=== PATIENT | female | born 1940 | race Two or more races ===

== ENCOUNTER 2020-05-20 11:23 | Inpatient (IN) | payer OTHER ==
[~2020-05-20] VITALS: Ht 152.4 cm; Wt 59.0 kg
[2020-06-17] MEDS ORDERED: COZAAR50 MG PO (17:46)
[2020-06-17] MEDS ORDERED: SYNTHROID50 MCG PO (17:46)
[2020-06-17] MEDS ORDERED: OMEPRAZOLE40 MG PO (17:47)
[2020-06-17] MEDS ORDERED: NEURONTIN600 M1 PO (17:47)
[2020-06-17] MEDS ORDERED: GLIMEPIRIDE4 MG (17:47)
[2020-06-26] MEDS ORDERED: OXYC1TAB9 PO (12:47)
[2020-06-26] MEDS ORDERED: HYOSCYAMINE0.125 M1 SL (12:47)
== END 2020-06-26 15:23 | disposition home or self-care (01) | DRG 330 ==
LOC: SURH 06-20 11:45 → O/R 06-23 07:04 → SURG 06-23 14:35
PROVIDERS: ADMIT Surgery; ATTEND Surgery
PROC: 0DNU0ZZ Release Omentum, Open Approach (ICD-10-PCS; 2020-06-23)
PROC: 0DBB0ZZ Excision of Ileum, Open Approach (ICD-10-PCS; 2020-06-23)
PROC: 0WQF0ZZ Repair Abdominal Wall, Open Approach (ICD-10-PCS; 2020-06-23)
PROC: 0DTF0ZZ Resection of Right Large Intestine, Open Approach (ICD-10-PCS; principal; 2020-06-23 11:00)
DX: D12.1 Benign neoplasm of appendix (principal); K43.0 Incisional hernia with obstruction, without gangrene; D12.2 Benign neoplasm of ascending colon; D12.0 Benign neoplasm of cecum; K66.0 Peritoneal adhesions (postprocedural) (postinfection); K63.89 Other specified diseases of intestine